=== PATIENT | female | born 2005 ===

== ENCOUNTER 2023-05-17 01:28 | Emergency (ER) | payer OTHER ==
[2023-05-17] MEDS ORDERED: Acetaminophen 500 MG TAB ONE (02:59)
== END 2023-05-17 03:06 | disposition home or self-care (01) ==
LOC: CSHERS 01:28
DX: S60.111A Contusion of right thumb with damage to nail, initial encounter (principal); W22.8XXA Striking against or struck by other objects, initial encounter

== ENCOUNTER 2023-05-18 05:39 | Emergency (ER) | payer OTHER ==
[2023-05-18] MEDS ORDERED: HYDROcodone/Acetaminophen 5/325 mg Tablet ONE (05:58)
== END 2023-05-18 06:06 | disposition home or self-care (01) ==
LOC: CSHERS 05:39
DX: S60.111D Contusion of right thumb with damage to nail, subsequent encounter (principal); W22.8XXD Striking against or struck by other objects, subsequent encounter
CPT/HCPCS: 99283